=== PATIENT | female | born 1975 | race Caucasian/White ===

== ENCOUNTER → 2017-05-28 | Outpatient (CLI) | payer OTHER ==
[~2017-05-28] MED LIST: E-Z-PAQUE 96% w/w SUSP 176GM BTL As Ordered ONE
--- NOTE | 2017-05-28 15:33 | REP ---
Small bowel follow-through The procedure was performed under the direct supervision of Dr. Borrero. The images were reviewed with Dr. Borrero. The slab puller film shows no organomegaly or pathological masses. The intestinal gas pattern is nonspecific. Liquid barium was administered and the barium column was followed through the small bowel to the level of the terminal ileum. Small bowel transit time is approximately 1 hour and 20 minutes. During fluoroscopy gentle palpation shows all loops are freely movable and pliable. There are no fixed or angulated loops. The small bowel mucosal pattern is normal in course and caliber. There is no transition to suggest a partial small bowel obstruction. Spot filming of the terminal ileum shows it to be unremarkable. Impression: Small bowel follow-through examination within normal limits. 1 minute and 9 seconds of fluoro time was utilized for this procedure. Reviewed by NASIR Monk 05/28/2017 01:11 PSigned by Pepe Borrero MD 05/28/2017 03:24 P
== END ==
LOC: M RAD 08:06
PROVIDERS: ATTEND Physician Assistant Medical
DX: R19.7 Diarrhea, unspecified (principal); K62.5 Hemorrhage of anus and rectum; R10.30 Lower abdominal pain, unspecified

== ENCOUNTER 2017-07-03 11:50 | Outpatient (CLI) | payer OTHER ==
[~2017-07-03] VITALS: Ht 160 cm; Wt 104.3 kg
[~2017-07-03 11:50] MED LIST changes: +ATOR40TA75 PO; +BACL1TAB9 PO; +BENT10CA PO; +CLON0.5T PO; -E-Z-PAQUE 96% w/w SUSP 176GM BTL As Ordered ONE; +GABA600T PO; +LEXA1TAB2 PO; +LISI-538 PO; +NS 1,000 ML IV SCH; +OMEP20CA3 PO; +OXYC-517 PO; +OXYC20TA40 PO; +PROM25TA PO; +PROV100T25 PO; +QUET1TAB7 PO; +QUET1TAB8 PO; +ZOFR20TA PO; +ZONI50CA3 PO
[2017-07-03] MEDS ORDERED: fentaNYL 100 MCG/2 ML INJECTION (J3010) As Ordered ONE (14:22)
[2017-07-03] MEDS ORDERED: PROPOFOL 200 MG/20 ML VIAL As Ordered ONE ×2 (14:39→14:46)
[2017-07-03] MEDS ORDERED: LIDOCAINE 2% INJ 100 MG/5 ML SDV (FOR ANES.) As Ordered ONE (14:39)
--- NOTE | 2017-07-03 14:53 | ROOR ---
Patient Name: March Dexter Procedure Date: 07/03/2017 2:26 PM Date of : 1975 Age: 42 Room: [facility] Gender: Female Note Status: Finalized Procedure: Upper GI endoscopy Indications: Generalized abdominal pain, Nausea Providers: Fernie BUSH MD Referring MD: TEDDY ESPINAL MD Requesting Provider: Medicines: Monitored Anesthesia Care Complications: No immediate complications. Procedure: Pre-Anesthesia Assessment: - The heart rate, respiratory rate, oxygen saturations, blood pressure, adequacy of pulmonary ventilation, and response to care were monitored throughout the procedure. The Endoscope was introduced through the mouth, and advanced to the second part of duodenum. The upper GI endoscopy was accomplished without difficulty. The patient tolerated the procedure well. Findings: Small Hiatal Hernia. The esophagus was normal. The stomach was normal. The examined duodenum was normal. Biopsies were taken with a cold forceps in the gastric antrum for Helicobacter pylori testing. Impression: - Small Hiatal Hernia. - Normal esophagus. - Normal stomach. - Normal examined duodenum. - Biopsies were taken with a cold forceps for Helicobacter pylori testing. Recommendation: - Continue present medications. - Telephone endoscopist for pathology results in 2 weeks. Fernie Bush MD Fernie BUSH MD 07/03/2017 2:52:32 PM This report has been signed electronically. Number of Addenda: 0 Note Initiated On: 07/03/2017 2:26 PM Estimated Blood Loss: Estimated blood loss: none.
--- NOTE | 2017-07-03 14:59 | ROOR ---
Patient Name: March Dexter Procedure Date: 07/03/2017 2:27 PM Date of : 1975 Age: 42 Room: [facility] Gender: Female Note Status: Finalized Procedure: Colonoscopy Indications: Generalized abdominal pain, Hematochezia, vague remote history of "colitis" Providers: Fernie BUSH MD Referring MD: TEDDY ESPINAL MD Requesting Provider: Medicines: Monitored Anesthesia Care Complications: No immediate complications. Procedure: Pre-Anesthesia Assessment: - The heart rate, respiratory rate, oxygen saturations, blood pressure, adequacy of pulmonary ventilation, and response to care were monitored throughout the procedure. The Colonoscope was introduced through the anus and advanced to 5 cm into the ileum. The colonoscopy was performed without difficulty. The patient tolerated the procedure well. The quality of the bowel preparation was good. Findings: The perianal and digital rectal examinations were normal. Internal hemorrhoids were found during retroflexion. The hemorrhoids were medium-sized. A medium scar was found at the splenic flexure. The scar was unremarkable in appearance. The entire examined colon appeared normal on direct and retroflexion views. The terminal ileum appeared normal. Biopsies for histology were taken with a cold forceps from the entire colon for evaluation of microscopic colitis. Impression: - Internal hemorrhoids. - Superficial mucosal scarring at the splenic flexure. - The entire examined colon is otherwise normal on direct and retroflexion views. - The examined portion of the ileum was normal. - Biopsies were taken with a cold forceps from the entire colon for evaluation of microscopic colitis. Recommendation: - Telephone endoscopist for pathology results in 2 weeks. - Continue present medications. Fernie Bush MD Fernie BUSH MD 07/03/2017 2:58:36 PM This report has been signed electronically. Number of Addenda: 0 Note Initiated On: 07/03/2017 2:27 PM Estimated Blood Loss: Estimated blood loss: none.
[2017-07-03 15:10] VITALS: BP 126/66
== END 2017-07-03 15:35 | disposition home or self-care (01) ==
LOC: M OPP 11:50
PROVIDERS: ATTEND Internal Medicine Gastroenterology
DX: K92.1 Melena (principal); R10.84 Generalized abdominal pain; K64.8 Other hemorrhoids; L90.5 Scar conditions and fibrosis of skin; K63.89 Other specified diseases of intestine; K62.5 Hemorrhage of anus and rectum; R12 Heartburn; R19.7 Diarrhea, unspecified; R11.0 Nausea; K44.9 Diaphragmatic hernia without obstruction or gangrene; E78.5 Hyperlipidemia, unspecified; I10 Essential (primary) hypertension; M10.9 Gout, unspecified; Z85.3 Personal history of malignant neoplasm of breast; Z92.21 Personal history of antineoplastic chemotherapy; Z92.3 Personal history of irradiation; Z87.19 Personal history of other diseases of the digestive system; Z86.14 Personal history of Methicillin resistant Staphylococcus aureus infection; M54.2 Cervicalgia; F41.9 Anxiety disorder, unspecified; F32.9 Major depressive disorder, single episode, unspecified; G43.909 Migraine, unspecified, not intractable, without status migrainosus; G62.9 Polyneuropathy, unspecified; F43.10 Post-traumatic stress disorder, unspecified; G47.8 Other sleep disorders; G47.30 Sleep apnea, unspecified; R06.83 Snoring; Z97.8 Presence of other specified devices; Z87.891 Personal history of nicotine dependence; Z88.0 Allergy status to penicillin; Z79.899 Other long term (current) drug therapy; Z80.0 Family history of malignant neoplasm of digestive organs
CPT/HCPCS: 43239; 45380; 88305; J3010

== ENCOUNTER → 2017-07-11 | Outpatient (CLI) | payer OTHER ==
[~2017-07-11] MED LIST changes: -NS 1,000 ML IV SCH
--- NOTE | 2017-07-11 16:13 | REP ---
MRI BRAIN WITHOUT AND WITH CONTRAST: HISTORY: Breast carcinoma. CONTRAST: ProHance 20 mL There are no areas of abnormal signal intensity in the brain. There is no intraparenchymal hemorrhage, infarct, mass or midline shift. The sella turcica is partially empty. There is no abnormal enhancement. The ventricular system is normal in appearance. There is no extracerebral collection. The sinuses are clear. IMPRESSION: There is no intracranial lesion. Signed by Jesse Nance MD 07/11/2017 04:27 P
== END ==
LOC: M RAD 15:05
PROVIDERS: ATTEND Psychiatry & Neurology Psychiatry
DX: Z85.3 Personal history of malignant neoplasm of breast (principal)
CPT/HCPCS: 70553; A9576

== ENCOUNTER → 2019-05-24 | Outpatient (CLI) | payer OTHER ==
[~2019-05-24] MED LIST changes: -CLON0.5T PO; +CLON0.5T8 PO; -GABA600T PO; +GABA600T4 PO; -PROM25TA PO; +PROM25TA12 PO; -ZOFR20TA PO; +ZOFR4TAB16 PO
--- NOTE | 2019-05-29 17:20 | REP ---
Clinical: Sitz marker study. Technique: Single supine view of the abdomen and pelvis. Findings: Sitz marker study day five. Bowel gas pattern is nonspecific. No residual sitz markers are appreciated. No organomegaly. No abnormal calcifications. Skeletal structures are intact. Impression: No residual sitz markers. Nonspecific bowel gas pattern. Electronically Signed by Adrian Villalobos MD 05/29/2019 05:12 P
== END ==
LOC: M RAD 13:46
PROVIDERS: ATTEND Physician Assistant Medical
DX: R19.8 Other specified symptoms and signs involving the digestive system and abdomen (principal)

== ENCOUNTER → 2019-08-09 | Outpatient (REF) | payer OTHER ==
[~2019-08-09] MED LIST changes: -OMEP20CA3 PO; +OMEP20CA4 PO
== END ==
LOC: M LAB REF 14:50
PROVIDERS: ATTEND Physician Assistant Medical
DX: R19.8 Other specified symptoms and signs involving the digestive system and abdomen (principal); R19.7 Diarrhea, unspecified

== ENCOUNTER 2019-11-11 06:40 | Day surgery (SDC) | payer OTHER ==
[~2019-11-11] VITALS: Ht 160 cm; Wt 99.8 kg
[~2019-11-11 06:40] MED LIST changes: +ADDE25CA PO; +CLON0.5T2 PO; -CLON0.5T8 PO; +OMEP-172 PO; -OMEP20CA4 PO
[2019-11-11] MEDS ORDERED: PROPOFOL 200 MG/20 ML VIAL As Ordered ONE ×2 (07:07→07:56)
[2019-11-11] MEDS ORDERED: LIDOCAINE 2% INJ 100 MG/5 ML SDV (FOR ANES.) As Ordered ONE (07:07)
[2019-11-11] MEDS ORDERED: PERC7.5T11 PO (07:20)
--- NOTE | 2019-11-11 07:59 | ROOR ---
Patient Name: March Dexter Procedure Date: 11/11/2019 7:33 AM Date of : 1975 Age: 44 Room: [facility] Gender: Female Note Status: Finalized Procedure: Colonoscopy Indications: Mixed irritable bowel syndrome, Generalized abdominal pain, Change in bowel habits Providers: Fernie BUSH MD Referring MD: TEDDY ESPINAL MD Requesting Provider: Medicines: Monitored Anesthesia Care Complications: No immediate complications. Procedure: Pre-Anesthesia Assessment: - The heart rate, respiratory rate, oxygen saturations, blood pressure, adequacy of pulmonary ventilation, and response to care were monitored throughout the procedure. The Colonoscope was introduced through the anus and advanced to the terminal ileum, with identification of the appendiceal orifice and IC valve. The colonoscopy was performed without difficulty. The patient tolerated the procedure well. The quality of the bowel preparation was adequate. Findings: The perianal and digital rectal examinations were normal. The colon (entire examined portion) appeared normal. The terminal ileum appeared normal. Small Internal Hemorrhoids. Impression: - The entire examined colon is normal. - The examined portion of the ileum was normal. - Small Internal Hemorrhoids. - No specimens collected. Recommendation: - Continue present medications. - Use fiber, for example Citrucel, Fibercon, Konsyl or Metamucil. Fernie Bush MD Fernie BUSH MD 11/11/2019 7:59:05 AM Electronically signed by Fernie BUSH MD Number of Addenda: 0 Note Initiated On: 11/11/2019 7:33 AM Estimated Blood Loss: Estimated blood loss: none.
[2019-11-11] MEDS ORDERED: NS 1,000 ML IV ONE (08:00)
[2019-11-11 08:10] VITALS: BP 157/80
== END 2019-11-11 08:25 | disposition home or self-care (01) ==
LOC: M OPP 06:40
PROVIDERS: ATTEND Internal Medicine Gastroenterology
DX: K64.8 Other hemorrhoids (principal); K58.2 Mixed irritable bowel syndrome; R19.4 Change in bowel habit; R10.84 Generalized abdominal pain; Z79.891 Long term (current) use of opiate analgesic; Z79.899 Other long term (current) drug therapy; Z88.0 Allergy status to penicillin; Z88.8 Allergy status to other drugs, medicaments and biological substances; Z80.0 Family history of malignant neoplasm of digestive organs; Z85.3 Personal history of malignant neoplasm of breast

== ENCOUNTER → 2022-10-29 | Outpatient (CLI) | payer OTHER ==
[~2022-10-29] MED LIST changes: +BOTO10VL IM; +CETI-24 PO; +CLON0.2T; +COEN100C4; +DISN1CHW3 PO; +DOXE10CA; +FOLTTAB9 PO; +GABA-283; +LAMO25TA4; -LISI-538 PO; +LISI20TA33 PO; +MAGN400T2 PO; +MULTCHW14 PO; +NOXI1TAB PO; -OMEP-172 PO; +OMEP1CAP73 PO; +OXYC-517; +PANT40TA29; +PERC7.5T11 PO; +PROHANCE 279.3MG/ML 15ML VIAL As Ordered ONE; +PROHANCE 279.3MG/ML 5ML VIAL As Ordered ONE; +QUET100T2 PO; +QUET1TAB17 PO; -QUET1TAB7 PO; -QUET1TAB8 PO; +ROSU20TA5; +SYNT75TA; +TOPI25TA10; +VITA500C24 PO; +ZONI50CA11 PO; -ZONI50CA3 PO
== END ==
LOC: M RAD 14:13
PROVIDERS: ATTEND Internal Medicine Medical Oncology
DX: R74.02 Elevation of levels of lactic acid dehydrogenase [LDH] (principal); R16.0 Hepatomegaly, not elsewhere classified; K76.0 Fatty (change of) liver, not elsewhere classified; D35.02 Benign neoplasm of left adrenal gland
CPT/HCPCS: 74183; A9576

== ENCOUNTER → 2025-06-02 | Outpatient (CLI) | payer OTHER ==
[~2025-06-02] MED LIST changes: +BACL10TA2 PO; -COEN100C4; +COEN100C4 PO; +D 50CAP2 PO; +DEKA1CHW PO; +DRON2.5C17; +EMGA120I SQ; +FLUTISP; +GABA-1490 PO; -GABA-283; +GABA-284 PO; -GABA600T4 PO; +HYDR-3363; +LAMO-18 PO; -LAMO25TA4; +LISI10TA22 PO; +METH20TA29 PO; +MIRT1TAB PO; +OLOP5DRO17 OU; +ONDA-282 PO; -OXYC-517; -PANT40TA29; +PANT40TA29 PO; +PIME1CRE TOP; -PROHANCE 279.3MG/ML 15ML VIAL As Ordered ONE; -PROHANCE 279.3MG/ML 5ML VIAL As Ordered ONE; -ROSU20TA5; +ROSU20TA86 PO; -SYNT75TA; +SYNT75TA PO; +TELM1TAB33 PO; +TOPI-256 PO; -TOPI25TA10; +VRAY3CAP PO; +[UNRECOGNIZED DRUG - CODE] PO
== END ==
LOC: M RAD 09:57
PROVIDERS: ATTEND Internal Medicine Medical Oncology
DX: Z85.3 Personal history of malignant neoplasm of breast (principal)
CPT/HCPCS: 78306; A9503